=== PATIENT | female | born 1950 | race Two or more races ===

== ENCOUNTER → 2025-05-27 | Outpatient (CLI) | payer MEDICARE, MEDICAID, SELFPAY ==
--- NOTE | 2025-05-27 09:50 | XR_ITS ---
Examination: Venous duplex upper extremity sonogram, bilateral. Date and time of exam: May 27, 2025, 1016 hours INDICATIONS: Multiple lumps on the arms and legs months Technique: Multiple sonographic images of the deep venous system have been obtained. B-mode/2-D grayscale imaging of vascular structures and Doppler spectral analysis (waveforms) and color performed Both legs are examined. Findings: Deep venous systems do not demonstrate abnormal echogenicity. All visualized deep veins exhibit compressibility. All visualized deep veins exhibit augmentation. Impression: Negative for deep vein thrombosis Multiple soft tissue hyperechoic masses in the arms, the largest on the right side 3.1 cm and on the left side 2.5 cm, consider 6-month ultrasound soft tissue [place] follow-up to document stability of these probably benign lipomatous
== END | disposition home or self-care (01) ==
PROVIDERS: PCP Nurse Practitioner Family; Referring Provider Nurse Practitioner Family; Visit Provider Nurse Practitioner Family
DX: R22.33 Localized swelling, mass and lump, upper limb, bilateral (principal)
CPT/HCPCS: 93970

== ENCOUNTER → 2025-08-02 | Outpatient (CLI) | payer MEDICARE, MEDICAID, SELFPAY ==
--- NOTE | 2025-08-02 13:15 | XR_ITS ---
Examination: MRI left humerus without contrast Date and time of exam: August 02, 2025, 1321 hours INDICATIONS: Localized swelling and lump in the left upper extremity several years Technique: Multiple MRI axial and sagittal sections left humerus. Sagittal T2-weighted images, TR 3500, TE 118 T1 weighted transverse sections, TR 688 T8.5, T2-weighted sagittal sections T1 weighted sagittal sections TR 621, TE 30 T2 axial sections, TR 4, 190, TE 84. Findings: Rotator cuff appears grossly intact Humeral head neck and shaft intact Multiple subtle foci of increased signal in the subcutaneous fatty tissue along the length of the arm No cortical bone destruction involving the humerus, no endosteal scalloping IMPRESSION: Multiple subtle masses with increased signal in the subcutaneous fatty tissue along the length of the arm, the largest posterior medial arm measuring 9 mm, differential would include lipomas, recommend ultrasound for further tissue characterization of these small masses Negative for osseous abnormality involving the humerus
--- NOTE | 2025-08-02 14:00 | XR_ITS ---
Examination: MRI right humerus without contrast Date and time of exam: August 02, 2025, 1357 hours INDICATION: Multiple lumps in both upper arms several years Technique: Multiple MRI axial and sagittal sections right humerus Sagittal T2-weighted images, TR 3500, TE 118 T1 weighted transverse sections, TR 688 T8.5, T2-weighted sagittal sections T1 weighted sagittal sections TR 621, TE 30 T2 axial sections, TR 4, 190, TE 84. Findings: Humeral head neck proximal and distal shaft intact No cortical bone destruction or endosteal scalloping Similar pattern to the left upper extremity, multiple hyperintense masses in the subcutaneous fatty tissue ranging in size from 4 to 25 mm, which may represent lipomas Recommend ultrasound left upper extremity follow-up for further characterization of the soft tissue masses IMPRESSION: Similar pattern to the left upper extremity, multiple hyperintense masses in the subcutaneous fatty tissue surrounding the humerus ranging in size from 4 to 25 mm, which may represent lipomas Recommend ultrasound soft tissue left upper extremity for further tissue characterization of these masses
== END | disposition home or self-care (01) ==
LOC: SMRI 12:47
PROVIDERS: PCP Nurse Practitioner Family; Referring Provider Nurse Practitioner Family; Visit Provider Nurse Practitioner Family
DX: R22.33 Localized swelling, mass and lump, upper limb, bilateral (principal)
CPT/HCPCS: 73218